=== PATIENT | male | born 1950 | race Caucasian/White ===

== ENCOUNTER 2019-03-08 12:05 | Inpatient (IN) | payer MEDICARE, MEDICAID ==
[~2019-03-08] VITALS: Ht 175.3 cm; Wt 84.8 kg
--- NOTE | 2019-03-08 12:11 | NUR ---
COUGH, CONGESTION, AND FEVER X 3 DAYS, PT AWAKE, ALERT, -SOB, NAD NOTED, VSS, PENDING MD PEARL
[2019-03-08] MEDS ORDERED: IV NS 0.9% 1,000 ML BAG IV ONE (12:30)
[2019-03-08] MEDS ORDERED: ONDANSETRON HCL/PF 4 MG/2 ML VIAL IVP ONE ×2 (12:30→14:00)
[2019-03-08 12:39] LABS: BASOPHILS % (AUTO) 1.3 % (0.0-2.0); EOSINOPHILS % (AUTO) 0.2 % (0.0-6.0); HEMATOCRIT 35 % (39-51); HEMOGLOBIN 11.7 g/dL (13.5-17.5); LYMPHOCYTES # (AUTO) 0.6 /CMM (0.8-4.8); LYMPHOCYTES % (AUTO) 19.1 % (20.0-44.0); MEAN CORPUSCULAR HGB CONC 33 g/dl (31.0-36.0); MEAN CORPUSCULAR VOLUME 84 fL (80-96); MONOCYTES # (AUTO) 0.2 /CMM (0.1-1.30); MONOCYTES % (AUTO) 5.3 % (2.0-12.0); NEUTROPHILS # (AUTO) 2.4 /CMM (1.8-8.9); NEUTROPHILS % (AUTO) 74.1 % (43.0-81.0); PLATELET COUNT (AUTO) 56 /CMM (150-450); RED BLOOD CELL COUNT(AUTO) 4.17 MIL/uL (4.5-6.0); WHITE BLOOD COUNT (AUTO) 3.2 K/uL (4.3-11.0)
[2019-03-08 12:46] LABS: CALCIUM, SERUM 8.5 mg/dL (8.5-10.1); CREATININE 2.4 mg/dL (0.6-1.3); POTASSIUM 3.4 mmol/L (3.5-5.1)
[2019-03-08 12:47] LABS: BILIRUBIN,URINE SMALL (NEGATIVE); BLOOD, URINE Moderate Ery/uL (NEGATIVE); COLOR,URINE Dark (YELLOW); KETONES,URINE Negative (NEGATIVE); LEUKOCYTE ESTERASE ,URINE Negative (NEGATIVE); NITRITE, URINE Negative (NEGATIVE); PH,URINE 5.5 (5.0-8.0); PROTEIN,URINE >=300 mg/dl (NEGATIVE); UGLUCOSE Negative (NEGATIVE)
[2019-03-08 12:50] LABS: APPEARANCE,URINE SLIGHTLY HAZY (CLEAR)
[2019-03-08 12:52] LABS: ALBUMIN 2.6 g/dL (3.4-5.0); BILIRUBIN,DIRECT 1.2 mg/dL (0.0-0.2); BILIRUBIN,TOTAL 1.8 mg/dL (0.2-1.0); TOTAL PROTEIN, SERUM 6.8 g/dL (6.4-8.2)
[2019-03-08 12:56] LABS: URINE AMORPHOUS URATE Moderate /HPF (None Seen)
[2019-03-08 12:57] LABS: BACTERIA,URINE Few /HPF (None Seen); SQUAMOUS EPITHELIAL CELL,UR Rare /HPF (None Seen); WBC,URINE 0-2 /HPF (0-3)
[2019-03-08] MEDS ORDERED: ONDANSETRON HCL/PF 4 MG/2 ML VIAL ONE ×2 (13:03→14:02)
[2019-03-08] MEDS ORDERED: CEFTRIAXONE 1GM BAG (ER ONLY) 50 ML IV ONE (14:00)
[2019-03-08] MEDS ORDERED: AZITHROMYCIN 500 MG in IV D5W 250 ML IV ONE (14:00)
[2019-03-08] MEDS ORDERED: ASPIRIN 325 MG TABLET PO ONE (14:00)
[2019-03-08 14:02] LABS: LYMPHOCYTES % (MANUAL) 15 % (16-48); MONOCYTES % (MANUAL) 5 % (0-11.0); NEUTROPHILS % (MANUAL) 80 (42-76)
[2019-03-08] MEDS ORDERED: ASPIRIN 325 MG TABLET ONE (14:02)
[2019-03-08] MEDS ORDERED: METO-357 PO (14:06)
[2019-03-08] MEDS ORDERED: FAMO20TA8 PO (14:06)
[2019-03-08] MEDS ORDERED: LOSA100T31 PO (14:06)
[2019-03-08] MEDS ORDERED: ERGO500040 PO (14:06)
[2019-03-08] MEDS ORDERED: COLC0.6T67 PO (14:06)
[2019-03-08] MEDS ORDERED: ASPI-605 PO (14:06)
[2019-03-08] MEDS ORDERED: LOSA50TA39 PO (14:06)
[2019-03-08] MEDS ORDERED: AMLO5TAB9 PO (14:06)
[2019-03-08] MEDS ORDERED: SIMV-49 PO (14:06)
--- NOTE | 2019-03-08 14:48 | NUR ---
GOT BED 102
[2019-03-08] MEDS ORDERED: ACETAMINOPHEN ES 500 MG TABLET ONE (15:05)
[2019-03-08] MEDS ORDERED: ACETAMINOPHEN 325 MG TABLET PO PRN (15:30)
--- NOTE | 2019-03-08 15:40 | NUR ---
RECORD PRESSMANMECHANIST NOTE: PATIENT ARRIVED IN UNIT VIA GURNEY WITH ED STAFF AND FAMILY. PATIENT IS INDEPENDENT WITH AMBULATION. ON ROOM AIR AND TOLERATING WELL, NO SOB AND NOT IN RESPIRATORY DISTRESS. SATURATION OF 95%, OFFERED O2 VIA NC @ 2LPM AND PATIENT ACCEPTED. TOLERATED WELL WITH SATURATION @ 99%. ALERT AND ORIENTED X4. MACANESE-SPEAKING AND UNDERSTANDS PALESTINIAN FAIRLY WELL WITH SONS ACTING CLOTH MERCERIZING SUPERVISOR. IV SITE ON RAC G20 SALINE LOCK, CLEAN, DRY AND PATENT. NO PAIN NO DISCOMFORT NOTED. ON CARDIAC MONITORING WITH SINUS TACHYCARDIA @ 101BPM. FEVER NOTED AT 101.3. COOLING MEASURES STARTED. ORIENTED TO ROOM SET-UP. CALL LIGHT IN REACH, SIDE RAILS UP, BED LOCKED, LOW AND AT SEMI-OROURKE'S POSITION. WILL CONTINUE TO MONITOR. AWAITING ORDERS FROM DR. BRASWELL.
--- NOTE | 2019-03-08 15:50 | NUR ---
MS RN NOTE: INFORMED PATIENT ABOUT SKIN ASSESSMENT TO BE DONE AND EXPLAINED THE NEED. PATIENT AND FAMILY INFORMED NURSE THAT PATIENT IS FREE OF SKIN ISSUES AND SKIN IS INTACT EXCEPT FOR THE LEFT DE [place] PAZ ABRASION. REFUSED HEAD TO TOE SKIN ASSESSMENT.
[2019-03-08 16:00] VITALS: BP 119/68
[2019-03-08] MEDS ORDERED: MAG HYDROX/AL HYDROX/SIMETH 30 ML UDC PO PRN (16:30)
[2019-03-08] MEDS ORDERED: HYDROCODONE/APAP 5/325MG 1 EACH TABLET PO PRN (16:30)
[2019-03-08] MEDS ORDERED: Z GUARD REMEDY 2 OZ OINT TP PRN (16:30)
[2019-03-08] MEDS ORDERED: MAGNESIUM HYDROXIDE 30 ML UDC PO PRN (16:30)
[2019-03-08] MEDS: IV NS 0.9% 1,000 ML IV SCH (16:49)
[2019-03-08] MEDS: COLCHICINE 0.6 MG TABLET PO SCH (16:50)
--- NOTE | 2019-03-08 18:00 | NUR ---
RN NOTE: DR. BRASWELL MADE AWARE OF PATIENT'S RECENT TROPONIN LEVEL.
--- NOTE | 2019-03-08 19:23 | NUR ---
TELE/RN OPENING NOTES RECEIVED PATIENT SITTING IN BED, FAMILY AT BED SIDE ON OXYGEN FOR COMFORT MEASURES, ABLE TO AMBULATE WITH ASSISTANCE, RECEIVED ENDORSEMENT FROM AM RN FOR REY. BED LOCKED, CALL LIGHTS WITHIN REACH. TELE MONITOR AWITH SR TO ST TO 103. SKIN WARM TO TOUCH, REFUSE SKIN ASSESSMENT REPORTED INTASCT WITH NO OPEN WOUNDS, MONITORING FOR ELEVATED TEMPERATURE, WILL MONITOR. ON CARDIAC DIET, ABLE TO TOLERATE FLUIDS. IV SITE ON RIGHT AC PATENT. WILL MONITOR.
--- NOTE | 2019-03-08 19:30 | NUR ---
3RD PRESSMAN CLOSING NOTE: PATIENT IN BED. AWAKE, ALERT AND ORIENTED X4. ON O2 VIA NC @ 2LPM AND PATIENT TOLERATING WELL WITH SATURATION @ 99%. IV SITE ON RAC G20 SALINE LOCK, CLEAN, DRY AND PATENT WITH IV INFUSION OF NS @ 100MLS/HR INFUSING WELL. NO PAIN NO DISCOMFORT NOTED. ON CARDIAC MONITORING WITH SINUS TACHYCARDIA @ 105BPM. FEVER NOTED UPON ADMISSION AND MD AWARE, COOLING MEASURES IN PLACE. CALL LIGHT IN REACH, SIDE RAILS UP, BED LOCKED, LOW AND AT SEMI-OROURKE'S POSITION. DR. BRASWELL MADE ROUNDS WITH PATIENT EARLIER AND IS AWARE OF PATIENT'S CONDITION. ENDORSED CARE TO CAD LIBRARIAN.
[2019-03-08 20:10] VITALS: BP 109/56
[2019-03-08] MEDS ORDERED: MEROPENEM 1 G VIAL IV ONE (21:12)
--- NOTE | 2019-03-08 21:25 | NUR ---
TELE/RN NOTES VANCOMYCIN 1.25MG IV ADMINISTERED VIA IV PER MD ORDER. PATIENT TOLERATED , IV SITE ON RIGHT AC PATENT.
[2019-03-08] MEDS ORDERED: VANCOMYCIN 1 GM VIAL ONE (21:27)
[2019-03-08] MEDS ORDERED: VANCOMYCIN 1.25 GM in IV D5W 250 ML IV ONE (21:30)
[2019-03-08] MEDS ORDERED: MEROPENEM 1 G in IV NS 0.9% 100 ML IV ONE (21:30)
--- NOTE | 2019-03-08 22:50 | NUR ---
TELE/RN NOTES LAB RESULT OF TROPONIN LEVEL OF 0.416 WAS REPORTED TO MD WITH NO NEW ORDER RECEIVED.
[2019-03-08] MEDS ORDERED: SIMVASTATIN 20 MG TABLET ONE (22:53)
[2019-03-08] MEDS: SIMVASTATIN 40 MG TABLET PO SCH (22:56)
--- NOTE | 2019-03-08 23:55 | NUR ---
TELE/RN NOTES TYLENOL 650 MG PO GIVEN FOR LOW GRADE FEVER.
[2019-03-08] MEDS: ACETAMINOPHEN 325 MG TABLET PO PRN (23:57)
[2019-03-09] VITALS (7 sets, daily range): BP systolic 106–132; BP diastolic 54–69
[2019-03-09] MEDS: IV NS 0.9% 1,000 ML IV SCH (03:21)
[2019-03-09 06:20] LABS: CALCIUM, SERUM 7.6 mg/dL (8.5-10.1); CREATININE 2.2 mg/dL (0.6-1.3); MAGNESIUM 2.3 mg/dL (1.8-2.4); PHOSPHORUS 2.9 mg/dL (2.5-4.9); POTASSIUM 3.2 mmol/L (3.5-5.1)
--- NOTE | 2019-03-09 06:22 | NUR ---
TELE/RN CLOSING NOTES PATIENT IN BED, ABLE TO REPOSITION SELF WITH ASSISTANCE, KEPT COMFORTABLE, ATTENDED TO ALL NEEDS, IV SITE PATENT WITH NO S/S OF INFILTRATION, MONITORED FOR ANY CHANGES , KEPT SKIN INTACT. RESPIRATIONS EVEN AND UNLABORED WITH 2 LITER OXYGEN. BED LOCKED, CALL LIGHTS WITHIN REACH, WILL MONITOR. WILL ENDORSE TO AM RN FOR REY.
[2019-03-09] MEDS ORDERED: FEE PK DOSING 1 MIN EA MC ONE (06:34)
[2019-03-09 07:10] LABS: BASOPHILS % (AUTO) 0.8 % (0.0-2.0); EOSINOPHILS % (AUTO) 0.6 % (0.0-6.0); HEMATOCRIT 32 % (39-51); HEMOGLOBIN 10.4 g/dL (13.5-17.5); LYMPHOCYTES # (AUTO) 0.9 /CMM (0.8-4.8); MEAN CORPUSCULAR HGB CONC 33 g/dl (31.0-36.0); MEAN CORPUSCULAR VOLUME 84 fL (80-96); MONOCYTES # (AUTO) 0.4 /CMM (0.1-1.30); MONOCYTES % (AUTO) 12.3 % (2.0-12.0); NEUTROPHILS # (AUTO) 2.2 /CMM (1.8-8.9); NEUTROPHILS % (AUTO) 60.3 % (43.0-81.0); RED BLOOD CELL COUNT(AUTO) 3.77 MIL/uL (4.5-6.0); WHITE BLOOD COUNT (AUTO) 3.6 K/uL (4.3-11.0)
[2019-03-09 07:44] LABS: PLATELET COUNT (AUTO) 36 /CMM (150-450)
[2019-03-09] MEDS: COLCHICINE 0.6 MG TABLET PO SCH ×2 (08:36→16:38)
[2019-03-09] MEDS: ASPIRIN EC 81 MG TABLET.DR PO SCH (08:36)
[2019-03-09] MEDS: FAMOTIDINE (20 MG) 20 MG TABLET PO SCH (08:36)
[2019-03-09] MEDS: POTASSIUM CL. PREMIX PERIPHER. 50 ML IV SCH ×4 (08:36→12:08)
[2019-03-09] MEDS: METOPROLOL SUCCINATE 50 MG TAB.SR.24H PO SCH (08:37)
[2019-03-09] MEDS: MEROPENEM 1 G in IV NS 0.9% 100 ML IV SCH ×2 (09:03→21:51)
[2019-03-09] MEDS: IV NS 0.9% 1,000 ML IV PRN ×2 (09:50→17:59)
[2019-03-09 10:15] LABS: BAND % (MANUAL) 8 % (0.0-5.0); LYMPHOCYTES % (MANUAL) 18 % (16-48); MONOCYTES % (MANUAL) 10 % (0-11.0); NEUTROPHILS % (MANUAL) 64 (42-76)
[2019-03-09] MEDS: ACETAMINOPHEN 325 MG TABLET PO PRN ×2 (11:03→21:52)
[2019-03-09 12:29] LABS: APPEARANCE,URINE CLEAR (CLEAR); BILIRUBIN,URINE NEGATIVE (NEGATIVE); BLOOD, URINE LARGE Ery/uL (NEGATIVE); COLOR,URINE DARK YELLO (YELLOW); KETONES,URINE NEGATIVE (NEGATIVE); LEUKOCYTE ESTERASE ,URINE NEGATIVE (NEGATIVE); NITRITE, URINE NEGATIVE (NEGATIVE); PROTEIN,URINE 30 mg/dl (NEGATIVE); UGLUCOSE NEGATIVE (NEGATIVE); UROBILINOGEN,URINE 0.2 EU/dL (0.2)
[2019-03-09 12:32] LABS: URINE TOTAL PROTEIN 86.5 mg/dL (0-11.9)
[2019-03-09] MEDS: AZITHROMYCIN 500 MG in IV D5W 250 ML IV SCH (13:27)
[2019-03-09 14:58] LABS: BACTERIA,URINE None seen /HPF (None Seen); EOSINOPHIL,URINE None Seen; SQUAMOUS EPITHELIAL CELL,UR Few /HPF (None Seen); WBC,URINE 0-2 /HPF (0-3)
[2019-03-09] MEDS ORDERED: KETOROLAC TROMETHAMINE 15 MG/ML VIAL ONE (16:50)
[2019-03-09] MEDS ORDERED: AZITHROMYCIN 500 MG in IV D5W 250 ML IV SCH (17:00)
[2019-03-09] MEDS: OSELTAMIVIR PHOSPHATE 75 MG CAPSULE PO SCH (17:59)
[2019-03-09] MEDS ORDERED: CEFTRIAXONE 1 G in IV D5W 50 ML IV SCH (18:00)
[2019-03-09] MEDS: ONDANSETRON HCL/PF 4 MG/2 ML VIAL IVP PRN (19:26)
[2019-03-09] MEDS ORDERED: VANCOMYCIN 1.25 GM in IV D5W 250 ML IV SCH (21:00)
[2019-03-09] MEDS ORDERED: SIMVASTATIN 20 MG TABLET ONE (22:38)
[2019-03-09] MEDS: SIMVASTATIN 40 MG TABLET PO SCH (22:43)
[2019-03-10] VITALS: BP 146/73
[2019-03-10 04:00] VITALS: BP 117/64
[2019-03-10 06:27] LABS: BASOPHILS % (AUTO) 0.6 % (0.0-2.0); EOSINOPHILS % (AUTO) 0.8 % (0.0-6.0); HEMATOCRIT 31 % (39-51); HEMOGLOBIN 10.5 g/dL (13.5-17.5); LYMPHOCYTES # (AUTO) 1.3 /CMM (0.8-4.8); LYMPHOCYTES % (AUTO) 25.6 % (20.0-44.0); MEAN CORPUSCULAR HGB CONC 33 g/dl (31.0-36.0); MEAN CORPUSCULAR VOLUME 84 fL (80-96); MONOCYTES # (AUTO) 0.6 /CMM (0.1-1.30); MONOCYTES % (AUTO) 11.2 % (2.0-12.0); NEUTROPHILS # (AUTO) 3.2 /CMM (1.8-8.9); NEUTROPHILS % (AUTO) 61.8 % (43.0-81.0); PLATELET COUNT (AUTO) 52 /CMM (150-450); RED BLOOD CELL COUNT(AUTO) 3.73 MIL/uL (4.5-6.0); WHITE BLOOD COUNT (AUTO) 5.2 K/uL (4.3-11.0)
[2019-03-10 07:10] LABS: CALCIUM, SERUM 7.8 mg/dL (8.5-10.1); CREATININE 1.6 mg/dL (0.6-1.3); MAGNESIUM 2.3 mg/dL (1.8-2.4); PHOSPHORUS 2.1 mg/dL (2.5-4.9); POTASSIUM 3.1 mmol/L (3.5-5.1); TOTAL PROTEIN, SERUM 5.8 g/dL (6.4-8.2)
--- NOTE | 2019-03-10 07:27 | NUR ---
MS RN OPENING NOTE RECEIVED REPORT FROM [facility] SHIFT NURSE. PT ASLEEP IN BED, ON ROOM AIR, SATURATING WELL, RESPIRATIONS EVEN AND UNLABORED, NO SIGNS OF RESPIRATORY DISTRESS NOTED. IV SITE ON RIGHT AC G20 INTACT, PATENT, NS INFUSING AT 100CC/HR, NO SIGNS OF INFILTRATION NOTED. BED IN LOW POSITION, LOCKED, CALL LIGHT WITHIN REACH, FAMILY BY BEDSIDE.
[2019-03-10 08:00] VITALS: BP_SYST 124; BP_SYST 139; BP_DIAS 69; BP_DIAS 72
[2019-03-10] MEDS: IV NS 0.9% 1,000 ML IV PRN (08:15)
[2019-03-10] MEDS: MEROPENEM 1 G in IV NS 0.9% 100 ML IV SCH (08:15)
[2019-03-10] MEDS: COLCHICINE 0.6 MG TABLET PO SCH ×2 (08:56→16:21)
[2019-03-10] MEDS: OSELTAMIVIR PHOSPHATE 75 MG CAPSULE PO SCH (08:56)
[2019-03-10] MEDS: FAMOTIDINE (20 MG) 20 MG TABLET PO SCH (08:56)
[2019-03-10] MEDS: ASPIRIN EC 81 MG TABLET.DR PO SCH (08:56)
[2019-03-10] MEDS: METOPROLOL SUCCINATE 50 MG TAB.SR.24H PO SCH (08:58)
[2019-03-10] MEDS: ONDANSETRON HCL/PF 4 MG/2 ML VIAL IVP PRN (09:06)
[2019-03-10] MEDS: AZITHROMYCIN 500 MG in IV D5W 250 ML IV SCH (12:15)
[2019-03-10] MEDS ORDERED: POTASSIUM CHLORIDE 10 MEQ TABLET.SA PO ONE (12:30)
[2019-03-10] MEDS ORDERED: K PHOS NEUTRAL 250 MG TABLET PO ONE (13:00)
[2019-03-10] MEDS: ACETAMINOPHEN 325 MG TABLET PO PRN (13:02)
[2019-03-10] MEDS: VANCOMYCIN 1.25 GM in IV D5W 250 ML IV SCH (15:18)
[2019-03-10] MEDS ORDERED: FEE PK DOSING 1 MIN EA MC ONE ×2 (15:18)
[2019-03-10 16:00] VITALS: BP 124/72
[2019-03-10] MEDS: GENTAMICIN 120 MG in IV D5W 100 ML IV SCH ×2 (16:21→17:20)
--- NOTE | 2019-03-10 19:10 | NUR ---
MS/RN OPENING NOTE RECEIVED PT AWAKE IN BED WITH FAMILY AT BEDSIDE, ON ROOM AIR, SATURATING WELL, RESPIRATIONS EVEN AND UNLABORED, NO SIGNS OF RESPIRATORY DISTRESS NOTED. IV SITE ON RIGHT AC G20 INTACT, PATENT SL. WILL BE NPO STARTING MIDNIGHT. NO SIGNS OF INFILTRATION NOTED. SAFETY MEASURES ARE IN PLACE. BED IN LOW POSITION, LOCKED, CALL LIGHT WITHIN REACH. WILL CONTINUE MONITORING PT ACCORDINGLY.
[2019-03-10 19:48] LABS: CALCIUM, SERUM 7.4 mg/dL (8.5-10.1); CREATININE 1.4 mg/dL (0.6-1.3); POTASSIUM 3.4 mmol/L (3.5-5.1)
--- NOTE | 2019-03-10 19:49 | NUR ---
MS RN CLOSING NOTE PT AWAKE IN BED, ALERT AND ORIENTED X 4, ON ROOM AIR, SATURATING WELL, RESPIRATIONS EVEN AND UNLABORED, NO SIGNS OF RESPIRATORY DISTRESS NOTED. IV SITE ON RIGHT AC G20 INTACT, PATENT, WITH HEP LOCK IN PLACE. PROVIDED SAFETY AND COMFORT TO PT THROUGHOUT SHIFT, ALL DUE MEDS GIVEN. BED IN LOW POSITION, LOCKED, CALL LIGHT WITHIN REACH, FAMILY BY BEDSIDE. CONSENT SIGNED FOR YECENIA SCHEDULED FOR 7AM 03/11/2019. ENDORSED TO [facility] SHIFT NURSE.
[2019-03-10 20:00] VITALS: BP 146/73
[2019-03-10] MEDS: SIMVASTATIN 20 MG TABLET PO SCH (21:03)
[2019-03-11] VITALS (22 sets, daily range): BP systolic 117–149; BP diastolic 61–88
[2019-03-11 03:14] LABS: BASOPHILS # (AUTO) 0.1 /CMM (0.0-0.2); BASOPHILS % (AUTO) 1.5 % (0.0-2.0); EOSINOPHILS % (AUTO) 1.9 % (0.0-6.0); HEMATOCRIT 30 % (39-51); HEMOGLOBIN 10.1 g/dL (13.5-17.5); LYMPHOCYTES # (AUTO) 1.4 /CMM (0.8-4.8); LYMPHOCYTES % (AUTO) 23.8 % (20.0-44.0); MEAN CORPUSCULAR HGB CONC 33 g/dl (31.0-36.0); MEAN CORPUSCULAR VOLUME 84 fL (80-96); MONOCYTES # (AUTO) 1.4 /CMM (0.1-1.30); MONOCYTES % (AUTO) 23.9 % (2.0-12.0); NEUTROPHILS # (AUTO) 2.9 /CMM (1.8-8.9); NEUTROPHILS % (AUTO) 48.9 % (43.0-81.0); PLATELET COUNT (AUTO) 70 /CMM (150-450); RED BLOOD CELL COUNT(AUTO) 3.61 MIL/uL (4.5-6.0)
[2019-03-11 03:27] LABS: CALCIUM, SERUM 7.6 mg/dL (8.5-10.1); CREATININE 1.3 mg/dL (0.6-1.3); PHOSPHORUS 2.4 mg/dL (2.5-4.9); POTASSIUM 3.4 mmol/L (3.5-5.1)
[2019-03-11 03:50] LABS: D-DIMER 1.87 mg/L(FEU (0.17-0.50)
[2019-03-11 03:55] LABS: EOSINOPHILS % (MANUAL) 2 % (0-4); LYMPHOCYTES % (MANUAL) 26 % (16-48); MONOCYTES % (MANUAL) 15 % (0-11.0)
[2019-03-11 03:56] LABS: NEUTROPHILS % (MANUAL) 57 (42-76)
[2019-03-11 04:03] LABS: THYROID STIMULATING HORMONE 1.027 uIU/mL (0.358-3.74)
[2019-03-11] MEDS ORDERED: ANESTHESIA TRAY IN PYXIS 1 EA TRAY MC ONE (06:16)
--- NOTE | 2019-03-11 06:18 | NUR ---
ICU/RN-RECEIVED PT. FROM MS1 BY BED, ACCOMPANIED BY STAFF. PT. IS SCHEDULED FOR YECENIA TODAY BY DR. ROCK AT 0700. PT. IS AWAKE, ALERT, EXPRESSIVE OF NEEDS. S[place]UD[place]ESE SPEAKING W/ LIMITED GREEK. EKG SR W/ HR-77. BP-131/74. DENIES PAIN OR DISCOMFORT. NEW IV SITE RIGHT HAND G. 20 STARTED X1 ATTEMPT. PT. NPO SINCE MIDNITE. DENIES PAIN. ON ROOM AIR, SATURATING 96%. NO S/S OF DISTRESS. AFEBRILE. WILL CONTINUE TO MONITOR PER PROTOCOL.
--- NOTE | 2019-03-11 06:18 | NUR ---
MS/RN CLOSING NOTES: PATIENT TRANSFERRED TO ICU IN STABLE CONDITION VIA BED. REPORT GIVEN TO CAMILLA DAVIDSON, ALL CONSENTS FOR THE PROCEDURE SIGNED. VITAL SIGNS STABLE. BP:137/70. TEMP 97.8, HR 77, RR 20, O2 SAT 95%. ON ROOM AIR, TOLERATING WELL. NO SOB NOTED, NO S/S OF ACUTE RESPIRATORY DISTRESS, NO COMPLAINS OF PAIN AT THIS TIME. WILL ENDORSE TO CAMILLA FOR REY.
--- NOTE | 2019-03-11 07:00 | NUR ---
ICU/RN INITIAL NOTES,AM RECEIVED BEDSIDE REPORT FROM NIGHT NURSE. AT BEDSIDE WITH ANESTHESIOLOGIST AND BACK UP MACHINE OPERATOR FOR YECENIA. CONSENT IN CHART. PT ON TELE, SINUS. VSS. PIVS PATENT AND INTACT, NO S/S OF INFECTION OR INFILTRATION NOTED. LEFT LEG CELLULITIS NOTED, SLIGHT REDNESS, NO WARMTH TO TOUCH, NO SWELLING. ALL NEEDS WILL BE ATTENDED TO, SAFETY MEASURES TAKEN, BED IN LOW POSITION, SIDE RAILS UP, CALL LIGHT WITHIN REACH. WILL CONTINUE TO MONITOR AND CARE.
--- NOTE | 2019-03-11 07:16 | NUR ---
ICU/RN: YECENIA COMPLETE, NO EVIDENCE OF ENDOCARDITIS NOTED. PER PT CAN BE RECOVERED AND RETURNED BACK TO TELE FLOOR. VSS, NO DISTRESS NOTED. WILL CONTINUE TO MONITOR.
[2019-03-11] MEDS ORDERED: K PHOS NEUTRAL 250 MG TABLET PO ONE (08:00)
[2019-03-11 08:06] LABS: HIV SCRN 4G wRFX Non Reactive (Non Reactive)
[2019-03-11] MEDS: FAMOTIDINE (20 MG) 20 MG TABLET PO SCH (08:34)
[2019-03-11] MEDS: ASPIRIN EC 81 MG TABLET.DR PO SCH (08:34)
[2019-03-11] MEDS: OSELTAMIVIR PHOSPHATE 75 MG CAPSULE PO SCH (08:36)
[2019-03-11] MEDS: METOPROLOL SUCCINATE 50 MG TAB.SR.24H PO SCH (08:36)
[2019-03-11] MEDS: VANCOMYCIN 1.25 GM in IV D5W 250 ML IV SCH (08:47)
[2019-03-11] MEDS ORDERED: POTASSIUM CHLORIDE 20 MEQ TAB.PRT.SR PO ONE (09:00)
[2019-03-11 09:07] LABS: PTH, INTACT 46 pg/mL (15-65)
[2019-03-11] MEDS: COLCHICINE 0.6 MG TABLET PO SCH ×2 (09:31→16:14)
--- NOTE | 2019-03-11 10:15 | NUR ---
ICU/RN: BEDSIDE REPORT ENDORSED TO PAULA AND PT TRANSFERRED TO ROOM 102 WITH ACLS GUIDELINES S/P YECENIA. ALL NEEDS ATTENDED TO. PT AAOX4, SINUS ON TELE. AT BEDSIDE. ENDORSED REPORT FOR REY.
--- NOTE | 2019-03-11 10:19 | NUR ---
FOREIGN DIPLOMAT NOTE RECEIVED PATIENT FROM ICU , ALERT ORIENTED ,ON RA ,NO SOB NOTED , RT AC AND RT HAND HL INTACT AND FLUSHED WELL ,BED IN LOWEST AND LOCKED POSITION , CALL LIGHT WITHIN REACH , PLAN OF CARE DISCUSSED WITH PATIENT , PLACED ON TELE SR ON VANCO ATB INFUSING AT THIS TIME ,NO C\O CHEST PAIN, WILL MONITOR
--- NOTE | 2019-03-11 11:19 | NUR ---
telegraph plant maintainer note abd us done as ordered
[2019-03-11] MEDS: GENTAMICIN 120 MG in IV D5W 100 ML IV SCH (11:22)
[2019-03-11 13:07] LABS: *SPE A/G RATIO 0.7 (0.7-1.7); *SPE ALBUMIN 2.1 g/dL (2.9-4.4); *SPE ALPHA-1-GLOBULIN 0.4 g/dL (0.0-0.4); *SPE ALPHA-2-GLOBULIN 0.7 g/dL (0.4-1.0); *SPE GLOBULIN, TOTAL 2.9 g/dL (2.2-3.9); *SPE M-SPIKE Not Observed g/dL (Not Observed); *SPEGAMMA GLOBULIN 0.8 g/dL (0.4-1.8)
--- NOTE | 2019-03-11 14:43 | NUR ---
telephone coin box collector note called to pharmacy notified that Ancef not available yet for 1400 stated that will bring soon
[2019-03-11] MEDS: CEFAZOLIN 2 GM in IV NS 0.9% 100 ML IV SCH ×2 (15:12→21:24)
--- NOTE | 2019-03-11 16:42 | NUR ---
LYE BOILER NOTE PER DR ADAMA VANCE TO PLACE PICC LINE FOR LONG ATB INFUSION AT HOME , CONSENT SIGNED BY PATIENT
--- NOTE | 2019-03-11 19:01 | NUR ---
MAMMOGRAPHY TECHNOLOGIST NOTE KAYLEIGH FROM PICC LINE INSERTED PICC LINE ON LT UPPER ARM KEEP CLEAN DRY , ALL NEEDS ATTENDED
--- NOTE | 2019-03-11 19:20 | NUR ---
RN OPENING NOTES: RECEIVED PATIENT RESTING IN BED, A/O X4. AT THE BEDSIDE. NO SOB NOTED. NO COMPLAIN OF PAIN. CALL LIGHT WITHIN REACH. BED IN LOWEST AND LOCKED POSITION.
[2019-03-11] MEDS: SIMVASTATIN 20 MG TABLET PO SCH (21:24)
--- NOTE | 2019-03-11 21:44 | NUR ---
PATIENT'S RIGHT AC G 20 REMOVED TIP IS INTACT, NO BLEEDING NOTED, COVERED WITH GAUZE.
[2019-03-11] MEDS ORDERED: GENTAMICIN 100 MG in IV D5W 100 ML IV SCH (22:00)
[2019-03-12] VITALS: BP 132/68
[2019-03-12] MEDS: CEFAZOLIN 2 GM in IV NS 0.9% 100 ML IV SCH ×3 (05:01→18:56)
[2019-03-12 05:31] VITALS: BP 145/69
--- NOTE | 2019-03-12 06:10 | NUR ---
RN CLOSING NOTES: PATIENT IS SITTING AT THE EDGE OF THE BED. NO SOB NOTED. NO COMPLAIN OF PAIN. AT THE BEDSIDE. NO ACUTE EVENTS OVERNIGHT. VITALS STABLE. AFEBRILE. ANTIBIOTICS GIVEN SCHEDULED. AMBULATORY. CALL LIGHT WITHIN REACH. BED IN LOWEST AND LOCKED POSITION. NO COMPLAIN OF CHEST PAIN.
--- NOTE | 2019-03-12 07:00 | NUR ---
RN INITIAL NOTE PATIENT IN BED, AWAKE AND ALERT. AT BEDSIDE. NO COMPLAINS OF ANY PAIN NOR SOB. BED LOCKED AND IN LOWEST POSITION. CALL LIGHT WITHIN REACH, WILL CONTINUE TO MONITOR
[2019-03-12 08:00] VITALS: BP 132/62
[2019-03-12 08:04] LABS: BASOPHILS # (AUTO) 0.2 /CMM (0.0-0.2); BASOPHILS % (AUTO) 2.4 % (0.0-2.0); EOSINOPHILS % (AUTO) 1.7 % (0.0-6.0); HEMATOCRIT 26 % (39-51); HEMOGLOBIN 8.7 g/dL (13.5-17.5); LYMPHOCYTES # (AUTO) 0.9 /CMM (0.8-4.8); LYMPHOCYTES % (AUTO) 14.6 % (20.0-44.0); MEAN CORPUSCULAR HGB CONC 33 g/dl (31.0-36.0); MEAN CORPUSCULAR VOLUME 84 fL (80-96); MONOCYTES % (AUTO) 16.7 % (2.0-12.0); NEUTROPHILS % (AUTO) 64.6 % (43.0-81.0); PLATELET COUNT (AUTO) 78 /CMM (150-450); RED BLOOD CELL COUNT(AUTO) 3.12 MIL/uL (4.5-6.0); WHITE BLOOD COUNT (AUTO) 6.2 K/uL (4.3-11.0)
[2019-03-12 08:15] LABS: CREATININE 2.4 mg/dL (0.6-1.3); MAGNESIUM 1.8 mg/dL (1.8-2.4); PHOSPHORUS 3.9 mg/dL (2.5-4.9); POTASSIUM 3.4 mmol/L (3.5-5.1)
[2019-03-12] MEDS: COLCHICINE 0.6 MG TABLET PO SCH ×3 (08:24→16:25)
[2019-03-12] MEDS: ASPIRIN EC 81 MG TABLET.DR PO SCH (08:25)
[2019-03-12] MEDS: OSELTAMIVIR PHOSPHATE 75 MG CAPSULE PO SCH (08:25)
[2019-03-12] MEDS: FAMOTIDINE (20 MG) 20 MG TABLET PO SCH (08:25)
[2019-03-12] MEDS: METOPROLOL SUCCINATE 50 MG TAB.SR.24H PO SCH (08:31)
[2019-03-12] MEDS ORDERED: ERGOCALCIFEROL (VITAMIN D 2) 50,000 UNIT CAPSULE PO SCH (09:00)
[2019-03-12 10:04] LABS: BAND % (MANUAL) 2 % (0.0-5.0); LYMPHOCYTES % (MANUAL) 23 % (16-48); MONOCYTES % (MANUAL) 10 % (0-11.0); NEUTROPHILS % (MANUAL) 65 (42-76)
[2019-03-12] MEDS ORDERED: CEFA1VIA19 IJ (11:57)
[2019-03-12] MEDS ORDERED: CEFA1PIG IV (11:57)
[2019-03-12 12:00] VITALS: BP 142/68
[2019-03-12 12:06] LABS: IMMUNOGLOBULIN A, SERUM 165 mg/dL (61-437); IMMUNOGLOBULIN G, SERUM 1066 mg/dL (700-1600); IMMUNOGLOBULIN M, SERUM 37 mg/dL (20-172)
--- NOTE | 2019-03-12 13:02 | NUR ---
RN NOTE PATIENT HAS A DC ORDER FROM DR BRASWELL. PATIENT WILL HAVE HOME HEALTH AT HOME BUT UNFORTUNATELY, HH ASSIGNED WON'T BE ABLE TO PROVIDE THE ANTIBIOTICS FOR TONIGHT'S DOSE. PER QUALITY REVIEW SPECIALIST, PATIENT WILL HAVE THE 1300 DOSE AND 1900 DOSE TONIGHT. 1900 DOSE WAS SUPPOSED TO BE 2100, BUT DR BRASWELL APPROVED TO GIVE IT AT 1900 SO THE PATIENT CAN GO HOME EARLY POSSIBLE
[2019-03-12 16:00] VITALS: BP 145/67
--- NOTE | 2019-03-12 18:47 | NUR ---
RN CLOSING NOTE PATIENT WILL HAVE HIS LAST DOSE OF ANCEF AT 1900, OK PER DR BRASWELL TO GIVE 2HOURS EARLY. WILL BE DC AFTER THE DOSE. AT BEDSIDE. ALL NEEDS MET. ALL MEDS GIVEN, PATIENT REFUSED TO TAKE COLCHICINE. WILL ENDORSE TO NOC SHIFT FOR REY IF PATIENT STILL HERE AFTER THE ANBX DOSE
--- NOTE | 2019-03-12 19:52 | NUR ---
RN NOTE ANCEF IV COMPLETED. IV ON RIGHT WRIST REMOVED. TELE BOX REMOVED. DISCHARGE PAPERWORK SIGNED. FAMILY AT BEDSIDE. ALL BELONGINGS WITH FAMILY. DISCHARGED OUT OF FACILITY IN ACCOMPANIED BY FAMILY IN STABLE CONDITION.
[2019-03-13 17:06] LABS: *HIV-1 RNA BY PCR <20 copies/mL (.)
== END 2019-03-12 21:02 | disposition home health service (06) | DRG 871 ==
LOC: ER 12:06 → TELE1 14:50 → MEDSG1 03-09 21:11 → ICU 03-11 06:08 → TELE1 03-11 10:08
PROVIDERS: ADMIT Internal Medicine; ATTEND Internal Medicine
PROC: 05H633Z Insertion of Infusion Device into Left Subclavian Vein, Percutaneous Approach (ICD-10-PCS; principal; 2019-03-11)
PROC: B547ZZA Ultrasonography of Left Subclavian Vein, Guidance (ICD-10-PCS; 2019-03-11)
DX: A41.9 Sepsis, unspecified organism (principal); J18.9 Pneumonia, unspecified organism; N17.0 Acute kidney failure with tubular necrosis; E43 Unspecified severe protein-calorie malnutrition; I21.A1 Myocardial infarction type 2; E87.1 Hypo-osmolality and hyponatremia; D61.818 Other pancytopenia; L03.116 Cellulitis of left lower limb; D69.59 Other secondary thrombocytopenia; R65.20 Severe sepsis without septic shock; I25.10 Atherosclerotic heart disease of native coronary artery without angina pectoris; I10 Essential (primary) hypertension; E86.1 Hypovolemia; E87.6 Hypokalemia; E88.09 Other disorders of plasma-protein metabolism, not elsewhere classified; Z95.5 Presence of coronary angioplasty implant and graft; Z95.2 Presence of prosthetic heart valve; K52.9 Noninfective gastroenteritis and colitis, unspecified; E80.6 Other disorders of bilirubin metabolism; K44.9 Diaphragmatic hernia without obstruction or gangrene; Z82.49 Family history of ischemic heart disease and other diseases of the circulatory system; K76.0 Fatty (change of) liver, not elsewhere classified; R16.2 Hepatomegaly with splenomegaly, not elsewhere classified; Z79.82 Long term (current) use of aspirin; B95.61 Methicillin susceptible Staphylococcus aureus infection as the cause of diseases classified elsewhere
CPT/HCPCS: 36415; 71045-TC; 71250-TC; 76700-TC; 76770-TC; 80048-TC; 80053-TC; 80061-TC; 80074; 80076-TC; 80202-TC; 81000-TC; 82550-TC; 82570-TC; 82728-TC; 82784; 83540-TC; 83605-TC; 83735-TC; 83970; 84100-TC; 84155; 84155-TC; 84165; 84300-TC; 84443-TC; 84484-TC; 85025-TC; 85045-TC; 85396; 85730-TC; 86334; 87040-TC; 87081-TC; 87536; 87806; 93307-TC; 93312-TC; C1751; G0378; J0456; J0690; J0696; J1580; J1885; J2185; J2405; J2704; J3370; J3480; J7030; J7050; J7060